=== PATIENT | female | born 1965 | race Two or more races ===

== ENCOUNTER 2017-02-03 10:54 | Emergency (ER) | payer SELFPAY ==
[~2017-02-03] VITALS: Ht 162.6 cm; Wt 72.0 kg
[2017-02-03] MEDS ORDERED: AMLODIPINE BESYL5 MG PO (11:16)
[2017-02-03] MEDS ORDERED: BENZTROPINE MESY1 MG PO (11:16)
[2017-02-03] MEDS ORDERED: HALDOL5 MG PO (11:17)
[2017-02-03] MEDS ORDERED: TRAZODONE HCL50 MG PO (11:17)
[2017-02-03 13:51] LABS: HEMATOCRIT 38.6 % (36.0-46.0); MCH 28.3 PG (29.0-34.0); MCHC 31.6 G/DL (30.0-36.0); MCV 89.6 FL (83-99); MEAN PLAT.VOLUME 11.4 uM^3 (9.5-12.4); PLATELET COUNT 157 K/uL (156-360); RBC DIS.WIDTH-CV 12.9 % (11.8-14.6); RBC DIS.WIDTH-SD 42.3 % (39-53); RED BLOOD COUNT 4.31 M/uL (3.80-5.20); WHITE BLOOD COUNT 8.2 K/uL (4.1-10.2)
[2017-02-03 14:40] LABS: CHLORIDE 116 mEq/L (99-109); POTASSIUM 3.7 mEq/L (3.7-5.4); SODIUM 147 mEq/L (136-147)
[2017-02-03 14:42] LABS: GLUCOSE 57 mg/dL (70-99)
[2017-02-03 14:43] LABS: ANION GAP 14 MEQ/L (2-14)
[2017-02-03 14:44] LABS: TOTAL BILIRUBIN 0.4 mg/dL (0.0-1.0)
[2017-02-03 14:46] LABS: ALKALINE PHOSPHATASE 89 IU/L (3-129); GFR ESTIMATE (CALCULATED) > 59 mL/min/
[2017-02-03 14:47] LABS: UREA NITROGEN (BUN) 19 mg/dL (9-23)
[2017-02-03 17:05] LABS: POINT-OF-CARE METER ID UU13113702
[2017-02-03 17:21] LABS: ADD MIUA? YES; BILIRUBIN NEGATIVE; BLOOD SMALL; COLOR YELLOW ((YELLOW)); GLUCOSE (STRIP) 50; KETONES 80; LEUKOCYTES NEGATIVE; NITRITE NEGATIVE; PROTEIN (STRIP) 30; SPECIFIC GRAVITY 1.023 (1.000-1.030); UROBILINOGEN 0.2 MG/DL (0.2-1.0)
[2017-02-03 17:26] LABS: BACTERIA RARE /HPF; EPITHELIAL CELLS RARE /HPF; MUCUS TRACE /LPF; RED BLOOD CELLS 0-5 /HPF (0-5); UCUL ADDED? NO; WHITE BLOOD CELLS 0-5 /HPF (0-5)
[2017-02-03 17:36] VITALS: BP 123/72
[2017-02-04 08:43] LABS: POINT-OF-CARE METER ID UU13113702
== END 2017-02-03 17:45 ==
LOC: EDBD 10:54 → EME 10:54
PROVIDERS: Emergency Medicine
DX: F29 Unspecified psychosis not due to a substance or known physiological condition (principal); E86.0 Dehydration; E16.2 Hypoglycemia, unspecified; F25.9 Schizoaffective disorder, unspecified; F31.9 Bipolar disorder, unspecified; I10 Essential (primary) hypertension
CPT/HCPCS: 80053; 81003; 82948; 85027; 99281; 99285; J2060; J3486; J7030